=== PATIENT | female | born 2000 | race Caucasian/White ===

== ENCOUNTER 2018-05-07 08:38 | Day surgery (SDC) | payer BC ==
[~2018-05-07 08:38] MED LIST: ACETAMINOPHEN 1,000 MG/100 ML BTL IV ONE; CLINDAMYCIN PHOS/D5W 900MG 900 MG/50 ML BAG IVPB ONE
[2018-05-07] MEDS ORDERED: ONDANSETRON HCL IV 4 MG/2 ML VIAL IVP ONE (08:39)
[2018-05-07] MEDS ORDERED: LIDOCAINE 2% MDV (20MG/ML) 20ML VIAL IV ONE (08:39)
[2018-05-07] MEDS ORDERED: KETOROLAC 30 MG/ML VIAL IVP ONE (08:39)
[2018-05-07] MEDS ORDERED: PROPOFOL 10 MG/ML VIAL IV ONE (08:39)
[2018-05-07] MEDS ORDERED: METHYLPREDNISOLONE 40MG/VIAL IM ONE (08:39)
[2018-05-07] MEDS ORDERED: FENTANYL PF 100MCG/2ML VIAL IV ONE (08:39)
[2018-05-07] MEDS ORDERED: MORPHINE SULFATE 4MG/ML PREFILLED SYRINGE IVP ONE (08:39)
[2018-05-07] MEDS ORDERED: MIDAZOLAM HCL 2MG/2ML VIAL IV ONE (08:39)
[2018-05-07] MEDS ORDERED: SEVOFLURANE 250 ML INH ONE (08:39)
[2018-05-07] MEDS ORDERED: BUPIVACAINE 0.5% W/EPI MPF 30 ML VIAL IVP ONE (08:39)
--- NOTE | 2018-05-09 11:35 | Operative Note ---
DATE OF SURGERY: 05/07/2018 PREOPERATIVE DIAGNOSIS: INTERNAL DERANGEMENT OF THE LEFT KNEE. POSTOPERATIVE DIAGNOSES: 1. RECURRENT LATERAL PATELLA SUBLUXATION, DISLOCATION. 2. 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 PROCEDURE: STAFF SURGEON: DR. JUICE AUSTIN ANESTHESIA: GENERAL. PREPARATION: CHLORAPREP. INDIVIDUAL CONSIDERATIONS: NONE. PROCEDURE: The patient was taken to the Operating Room and placed supine on the operating table. She had a successful induction of a general anesthetic. Her left lower extremity was prepped and then draped in the usual fashion. The patient had a superior lateral inflow cannula placed. The skin was infiltrated with 0.5% Marcaine with Epinephrine prior. The knee was then inflated with normal saline. An inferior medial and an inferior lateral portal were made in a similar fashion. The arthroscope was introduced through the inferior lateral portal up into the pouch. The patellofemoral joint showed obvious lateral subluxation with near dislocation. I could see how the medial facet of the patella actually hooked into the lateral femoral condyle ridge and it caused grade 3 change and a chondral lesion. This was debrided to a smooth area with a shaver. The notch otherwise looked good. Medial compartment structures were well seen and probed and found to be normal including the meniscus. In the notch, the cruciates were normal. Lateral compartment structures were absolutely normal. The meniscus was normal. The knee was then thoroughly irrigated out with saline. The portals were closed with brittany and 20 mL of 0.25% plain Marcaine along with 4 mg of Morphine and 40 mg of DepoMedrol were injected into the knee and a sterile Bulkee compressive dressing was applied. The patient tolerated the procedure well. Needle and sponge counts were correct. Estimated blood loss was minimal and she was taken back to Recovery in good condition. There were no complications. JOB NUMBER: [id number] MTDD
== END 2018-05-07 14:07 | disposition home or self-care (01) ==
LOC: SUR 08:38
PROVIDERS: ATTEND Orthopaedic Surgery
DX: M22.12 Recurrent subluxation of patella, left knee (principal); M22.42 Chondromalacia patellae, left knee
CPT/HCPCS: 29877; 01400; 81025; J1885; J2405; J3010; J3490; J2274; J1030

== ENCOUNTER 2018-06-24 11:17 | Day surgery (SDC) | payer BC ==
[2018-06-24] MEDS ORDERED: DIPHENHYDRAMINE HCL 50 MG/ML VIAL IVP ONE (11:18)
[2018-06-24] MEDS ORDERED: PROPOFOL 10 MG/ML VIAL IV ONE (11:18)
[2018-06-24] MEDS ORDERED: LIDOCAINE 2% MDV (20MG/ML) 20ML VIAL IV ONE (11:18)
[2018-06-24] MEDS ORDERED: MIDAZOLAM HCL 2MG/2ML VIAL IV ONE (11:18)
[2018-06-24] MEDS ORDERED: FENTANYL PF 100MCG/2ML VIAL IV ONE (11:18)
[2018-06-24] MEDS ORDERED: BUPIVACAINE 0.5% W/EPI MPF 30 ML VIAL IVP ONE (11:18)
[2018-06-24] MEDS ORDERED: DEXAMETHASONE 4 MG/ML 1ML VIAL IVP ONE (11:18)
[2018-06-24] MEDS ORDERED: SEVOFLURANE 250 ML INH ONE (11:18)
--- NOTE | 2018-06-27 09:22 | Operative Note ---
DATE: 06/24/2018. PREOPERATIVE DIAGNOSIS: 1. RECURRENT LATERAL SUBLUXATION AND DISLOCATION OF THE LEFT PATELLA. 2. 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 PROCEDURES: 1. Left knee tibial tubercle osteotomy. 2. Left knee arthroscopy with intra-articular debridement. 3. Left knee lateral release. STAFF SURGEON: Ramez Vela M.D. ANESTHESIA: General. PREPARATION: ChloraPrep. INDIVIDUAL CONSIDERATIONS: None. DESCRIPTION OF THE PROCEDURE: The patient was taken to the operating room and placed supine on the operating table. She had successful induction of a general anesthetic. Her right lower extremity was prepped and draped in the usual fashion. The patient had a superolateral inflow cannula placed. The skin had been infiltrated with 0.5% Marcaine with epinephrine prior. The knee was then inflated with normal saline. An inferomedial and an inferolateral portal were made in a similar fashion. The arthroscope was introduced through the inferolateral portal up into the pouch. The patellofemoral compartment showed obvious lateral tracking. I could actually dislocate it by pushing with my thumb. The medial facet patella had grade 3 changes, and this was smoothed off with a shaver. The notch looked all right. No loose bodies were seen. The structures of the medial and lateral compartments were normal including articular cartilage and meniscus. The cruciates were normal. After irrigation the arthroscopic instruments were removed. The patient had a midline approach to the tibial tubercle and patella. The incision was about 2.0 cm distal to the inferior pole of the patella and distally along the tibial tubercle for a total length of about 10 to 11 cm. The skin was again infiltrated with 0.5% Marcaine with epinephrine. Sharp dissection was carried down through the skin and subcutaneous tissue, and small veins were coagulated with the Bovie. At this point, the limb was elevated, and a tourniquet was inflated to 250 mm Hg. On the lateral border of the muscles in the anterior compartment, an incision was made to remove them. I then carefully elevated them up with a periosteal elevator about intermediate down on the tibia. I then extended it proximally. I then made a hole just lateral to the patellar tendon and then did a lateral release with Metzenbaum scissors up to the superolateral portal. This freed up the patella. I then made a broad-based osteotomy starting from lateral to medial. I then slightly angled anteriorly so when I moved it medially it would bring it anteriorly just a touch. I did janie it for length. After completing the osteotomy, I angled it on a periosteal hinge distally and brought it down just a hair to compensate for the cosign of the angle. I then moved over the most proximal portion a little over 1.0 cm. I secured it provisionally with guide pins for the 6.5 cannulated screw. I now tracked the patella, and it seemed to be tracking normally with equal stability as I moved it both medially and laterally. I checked for length and then secured it with lag screws with 6.5 cannulated screws with washers as verified by fluoroscopy. After irrigation, the tourniquet was let down and hemostasis was obtained with a Bovie. The distal two-thirds of the periosteum was then closed with a running #1 Vicryl. Subcutaneous tissue was closed in layers with 2-0+ Vicryl. The skin was closed with running #3-0 Quill, and a sterile Bulkee compressive dressing was applied. Prior to this, I did inject about 10 to 15 mL of 0.5% Marcaine with epinephrine into the knee through a sterile 18-gauge needle. The patient tolerated the procedures well. Needle and sponge counts were correct. Estimated blood loss was minimal. She was taken back to Recovery in good condition. There were no complications. Job Number: [id number] [facility]
== END 2018-06-24 15:50 | disposition home or self-care (01) ==
LOC: SUR 11:17
PROVIDERS: ATTEND Orthopaedic Surgery
DX: M22.12 Recurrent subluxation of patella, left knee (principal); M22.42 Chondromalacia patellae, left knee
CPT/HCPCS: 29877; 27455; 29873; 01392; 64447; 76000; 81025; J3010; J3490; C1713; J1200